=== PATIENT | female | born 2000 | race Caucasian/White ===

== ENCOUNTER 2025-05-20 01:52 | Emergency (ER) | payer MEDICAID ==
[~2025-05-20] VITALS: Ht 172.7 cm; Wt 80.0 kg
[2025-05-20 01:55] VITALS: O2SAT 98
[2025-05-20 03:04] LABS: BASOPHILS % 0.4 % (0.0-2.0); EOSINOPHILS % 1.1 % (0.0-5.0); HEMATOCRIT. 38.7 % (36.0-48.0); HEMOGLOBIN. 12.9 g/dL (12.0-16.0); LYMPHOCYTES % 18.8 % (20.0-50.0); MEAN PLATELET VOLUME 9.6 fl (7.4-10.4); MONOCYTES % 6.3 % (2.0-8.0); NEUTROPHILS % 73.4 % (40.0-76.0); PLATELET 243 x1000/uL (130-400); RED BLOOD CELL COUNT 4.36 mill/uL (4.2-5.4); RED CELL DISTRIBUTION WIDTH 13.4 % (11.6-14.6)
[2025-05-20 03:21] LABS: CREATININE 0.7 mg/dL (0.6-1.0)
[2025-05-20 03:22] LABS: ETHANOL BLOOD < 10 mg/dL (<10); UREA NITROGEN BLOOD < 5 mg/dL (9-23)
[2025-05-20 03:24] LABS: ASPARTATE AMINOTRANSFERASE 14 IU/L (<34); BILIRUBIN DIRECT 0.2 mg/dL (<=3.0); BILIRUBIN TOTAL 0.6 mg/dL (0.1-1.0); PROTEIN TOTAL 7.9 g/dL (6.0-8.3)
[2025-05-20 03:45] LABS: HCG SCREEN NEGATIVE
[2025-05-20] MEDS: SODIUM CHLORIDE 0.9% 1,000 ML IV ONE (03:59)
[2025-05-20] MEDS: FAMOTIDINE 20MG/2ML VIAL IV ONE (03:59)
[2025-05-20] MEDS: ONDANSETRON HCL 4MG/2ML INJ IV ONE (03:59)
[2025-05-20 04:05] LABS: CLARITY URINE CLOUDY (CLEAR); COLOR URINE YELLOW (YELLOW); GLUCOSE URINE NEGATIVE (NEGATIVE); KETONES URINE NEGATIVE (NEGATIVE); LEUKOCYTE ESTERASE URINE 3+ (NEGATIVE); NITRITE URINE NEGATIVE (NEGATIVE); OCCULT BLOOD URINE NEGATIVE (NEGATIVE); PH URINE 7.0 (4.5-8.0); PROTEIN URINE NEGATIVE (NEGATIVE); SPECIFIC GRAVITY URINE 1.012 (1.005-1.030); UROBILINOGEN URINE 0.2 E.U./dL (0.2-1.0)
[2025-05-20 04:53] LABS: SQUAMOUS EPITHELIAL CELL URINE 3+ /lpf (RARE/1+)
[2025-05-20 04:54] LABS: RBC URINE 0-2 /hpf (0-2)
[2025-05-20 04:55] LABS: BACTERIA URINE TRACE
[2025-05-20 04:56] LABS: *AMPHETAMINES SCREEN URINE PRESUMPTIVE POSITIVE (NEGATIVE); *BARBITURATES SCREEN URINE NEGATIVE (NEGATIVE); *BENZODIAZEPINES SCREEN URINE NEGATIVE (NEGATIVE); *COCAINE SCREEN URINE NEGATIVE (NEGATIVE)
[2025-05-20 04:57] LABS: CANNABINOID URINE SCREEN PRESUMPTIVE POSITIVE (NEGATIVE); ECSTASY MDMA SCREEN URINE NEGATIVE (NEGATIVE); METHADONE URINE SCREEN NEGATIVE (NEGATIVE); OPIATES URINE SCREEN NEGATIVE (NEGATIVE); PHENCYCLIDINE URINE SCREEN NEGATIVE (NEGATIVE)
[2025-05-20] MEDS: NITROFURANTOIN 100MG M/M CAPSULE PO SCH (09:32)
[2025-05-20] MEDS ORDERED: CEPH500C2 MT (11:33)
[2025-05-20 12:00] VITALS: BP 118/60; PULSE 72; RESP 16; TEMP 36.9; O2SAT 98
[2025-05-20] MEDS ORDERED: METR-354 MT (13:48)
[2025-05-20] MEDS ORDERED: CLOT30LO3 TP (13:48)
== END 2025-05-20 12:09 | disposition home or self-care (01) ==
LOC: ER 01:52
DX: N39.0 Urinary tract infection, site not specified (principal); R11.2 Nausea with vomiting, unspecified; F10.129 Alcohol abuse with intoxication, unspecified; F19.10 Other psychoactive substance abuse, uncomplicated; Z59.01 Sheltered homelessness; Z79.899 Other long term (current) drug therapy; Z20.822 Contact with and (suspected) exposure to COVID-19; Y90.9 Presence of alcohol in blood, level not specified
CPT/HCPCS: 80076; 80305; 80048; 81003; 80307; 80329; 80320; 84703; 83690; 85025; 87086; 36415; 96361; 96374; 96375; 99285; 87426; J1308; J2405; J7030; Z7610 ×2; G0480

== ENCOUNTER 2025-05-20 12:21 | Emergency (ER) | payer MEDICAID ==
[~2025-05-20] VITALS: Ht 165.1 cm; Wt 73.0 kg
[~2025-05-20 12:21] MED LIST: CEPH500C2 MT
[2025-05-20 12:28] VITALS: TEMP 37.1; O2SAT 100
[2025-05-20] MEDS ORDERED: METR-354 MT (13:48)
[2025-05-20] MEDS ORDERED: CLOT30LO3 TP (13:48)
[2025-05-20 13:54] LABS: CLARITY URINE CLEAR (CLEAR); COLOR URINE DARK YELLOW (YELLOW); GLUCOSE URINE NEGATIVE (NEGATIVE); KETONES URINE 1+ (NEGATIVE); LEUKOCYTE ESTERASE URINE 2+ (NEGATIVE); NITRITE URINE NEGATIVE (NEGATIVE); OCCULT BLOOD URINE NEGATIVE (NEGATIVE); PH URINE 7.0 (4.5-8.0); PROTEIN URINE NEGATIVE (NEGATIVE); SPECIFIC GRAVITY URINE 1.019 (1.005-1.030); UROBILINOGEN URINE 1.0 E.U./dL (0.2-1.0)
[2025-05-20 14:08] LABS: BACTERIA URINE 1+; RBC URINE NONE SEEN /hpf (0-2); SQUAMOUS EPITHELIAL CELL URINE 2+ /lpf (RARE/1+); YEAST URINE NONE SEEN
[2025-05-20 14:14] VITALS: BP 106/48; PULSE 55; RESP 16; O2SAT 100
[2025-05-23 04:10] LABS: CHLAMYDIA TRACHOMATIS NAA Negative (Negative); NEISSERIA GONORRHOEAE NAA Negative (Negative)
== END 2025-05-20 14:16 | disposition home or self-care (01) ==
LOC: ER 12:50
DX: Z11.3 Encounter for screening for infections with a predominantly sexual mode of transmission (principal); F12.90 Cannabis use, unspecified, uncomplicated; Z59.00 Homelessness unspecified; Z59.71 Insufficient health insurance coverage; Z79.899 Other long term (current) drug therapy
CPT/HCPCS: 81003; 87491; 87591; 99283